=== PATIENT | female | born 1975 | race African-American/Black ===

== ENCOUNTER 2022-08-30 10:40 | Emergency (ER) | payer OTHER, SELFPAY ==
[2022-08-30 10:43] VITALS: BP 168/84; PULSE 74; RESP 16; TEMP 36.6; O2SAT 99
[2022-08-30 11:57] LABS: Strep Group A RT-PCR NOT DETECTED (Negative)
[2022-08-30 12:12] LABS: Influenza A QL RT-PCR Negative (Negative); Influenza B QL RT-PCR Negative (Negative); SARS-CoV-2 RNA PCR Negative
--- NOTE | 2022-08-30 12:31 | ED.GENADULT ---
HPI - General Adult General Chief complaint: Unspecified Stated complaint: sore throat x 3 weeks Time Seen by Provider: 08/30/22 10:53 History of Present Illness HPI narrative: Patient is a 46-year-old female who presents ER with sinus congestion and sore throat ongoing for 3 weeks. Worse in the morning. Associate with productive cough. No fevers or chills or sweats. No chest pain or chest pressure. Has not taken a COVID test. No exertional dyspnea or wheezing. Related Data Allergies Allergy/AdvReac Type Severity Reaction Status Date / Time No Known Allergies Allergy Verified 08/30/22 10:45 Review of Systems Constitutional: Constitutional: Denies chills, Denies fatigue and Denies fever(s) ENT: Reports nasal congestion and Reports sore throat Cardiovascular: Cardiovascular: Denies chest pain and Denies palpitations Respiratory: Respiratory: Reports cough, Denies excessive phlegm production, Denies dyspnea and Denies wheezing PMFSH Past Medical History Medical History (Updated 08/30/22 @ 19:17 by Omkar Devlin MD) Healthy female adult Surgical History Surgical History (Updated 08/30/22 @ 19:17 by Omkar Devlin MD) No pertinent past surgical history Exam Narrative: GENERAL: Well-appearing, well-nourished, and in no acute distress. HEAD: Normocephalic, atraumatic. EYES: PERRL and EOMI. ENT: Mucous membranes moist. Normal-appearing posterior oropharynx. CHEST: Clear to auscultation. No respiratory distress. HEART: Regular rate and rhythm. Normal peripheral pulses. EXTREMITIES: Normal range of motion. No edema. NEURO: Alert and oriented x3. PSYCH: Normal mood and affect. Course Vital Signs Vital signs: Vital Signs Temperature 97.8 F 08/30/22 10:43 Pulse Rate 74 08/30/22 10:43 Respiratory Rate 16 08/30/22 10:43 Blood Pressure 168/84 H 08/30/22 10:43 Pulse Oximetry 99 08/30/22 10:43 Temperature 97.8 F 08/30/22 10:43 Pulse Rate 74 08/30/22 10:43 Respiratory Rate 16 08/30/22 10:43 Blood Pressure 168/84 H 08/30/22 10:43 Pulse Oximetry 99 08/30/22 10:43 Medical Decision Making Vital Signs Vital Signs: Vital Signs Temperature 97.8 F 08/30/22 10:43 Pulse Rate 74 08/30/22 10:43 Respiratory Rate 16 08/30/22 10:43 Blood Pressure 168/84 H 08/30/22 10:43 Pulse Oximetry 99 08/30/22 10:43 Temperature 97.8 F 08/30/22 10:43 Pulse Rate 74 08/30/22 10:43 Respiratory Rate 16 08/30/22 10:43 Blood Pressure 168/84 H 08/30/22 10:43 Pulse Oximetry 99 08/30/22 10:43 Lab Data Labs: Lab Results 08/30/22 08/30/22 Range/Units 11:18 11:18 Influenza A (RT-PCR) Negative (Negative) Influenza B (RT-PCR) Negative (Negative) SARS-CoV-2 RNA (RT-PCR) Negative Group A Strep (PCR) Not detected (Negative) Discharge Plan Discharge Clinical Impression: Acute upper respiratory infection Patient Disposition: Home, Self-Care Condition: Stable Instructions: Upper Respiratory Infection (ED) Additional Instructions: Return the ER if you cannot breathe, you cannot keep down food or water, you lose consciousness, you have additional concerns. Prescriptions: New guaifenesin 400 mg tablet 400 mg PO QID Qty: 14 0RF Follow-up/Referrals: Lalit,Lanie Chávez MD [Primary Care Provider] - 1 Week
== END 2022-08-30 13:15 | disposition home or self-care (01) ==
PROVIDERS: Emergency Provider Emergency Medicine; PCP Internal Medicine Gastroenterology
DX: J06.9 Acute upper respiratory infection, unspecified (principal); Z20.822 Contact with and (suspected) exposure to COVID-19
CPT/HCPCS: 87636; 87651; 99283

== ENCOUNTER 2023-10-30 08:57 | Outpatient (CLI) | payer OTHER, SELFPAY | END 2023-10-30 08:58 | disposition home or self-care (01) | LOC: ANHAUDIO 08:58 | PROVIDERS: PCP Internal Medicine Gastroenterology; Visit Provider Otolaryngology | DX: H93.11 Tinnitus, right ear (principal); R42 Dizziness and giddiness | CPT/HCPCS: 92552; 92556; 92567 ==